=== PATIENT | female | born 1955 | race Caucasian/White ===

== ENCOUNTER 2018-10-08 18:12 | Emergency (ER) | payer BC ==
[2018-10-08 18:31] VITALS: BP 144/76
[2018-10-08] MEDS ORDERED: Tetan/Diph/Pertus SYR(Tdap)* 0.5 ML SYR(BOOSTRIX) use SYR IM ONE (18:34)
--- NOTE | 2018-10-08 18:34 | UC ---
Skin Complaint HPI - HPI Summary HPI Summary: 12 days ago was carrying [employer] felt a sharp pain in her forearm saw a drop of blood she suspected a bite our sting had marked swelling and bruising of forearm now that swelling has gone down she feels a foreign body slight overlying redness Td not up to date - History of Current Complaint Time Seen by Provider: 10/08/18 18:23 Stated Complaint: SLIVER IN FOREARM Hx Obtained From: Patient Onset/Duration: Sudden Onset, Lasting Days Timing: Constant Onset Severity: Mild Current Severity: None Pain Intensity: 0 Pain Scale Used: 0-10 Numeric Location: Diffuse Character: Swelling, Pain Aggravating Factor(s): Touch Alleviating Factor(s): Nothing Associated Signs & Symptoms: Positive: Tenderness Related History: Foreign Body - ?? - Allergy/Home Medications Allergies/Adverse Reactions: Allergies Allergy/AdvReac Type Severity Reaction Status Date / Time codeine AdvReac Intermediate Nausea And Verified 10/08/18 18:26 Vomiting Home Medications: Home Medications Glucosamine Sulfate Dipot Chlr [Gnp Glucosamine Maximum S] 1,000 mg PO DAILY [History Confirmed 10/08/18] Tumeric 1 cap PO DAILY 10/08/18 [History Confirmed 10/08/18] PMH/Surg Hx/FS Hx/Imm Hx Previously Healthy: Yes - Surgical History Surgical History: Yes Surgery Procedure, Year, and Place: 2007 CSP - LAMINECTOMY - [facility]. Rt WRIST - FRACTURE - HARDWARE REMOVED. RT FEMUR FX - NAY. Lt SHOULDER - Family History Known Family History: Positive: Hypertension Review of Systems All Other Systems Reviewed And Are Negative: Yes Constitutional: Positive: Negative Skin: Positive: Negative Eyes: Positive: Negative, Diplopia ENT: Positive: Negative Respiratory: Positive: Negative Cardiovascular: Positive: Negative Gastrointestinal: Positive: Negative Genitourinary: Positive: Negative Physical Exam Triage Information Reviewed: Yes Appearance: Well-Appearing, No Pain Distress, Well-Nourished Vital Signs Reviewed: Yes Eyes: Positive: Conjunctiva Clear ENT: Positive: Hearing grossly normal. Negative: Nasal congestion, Nasal drainage, Trismus, Muffled voice, Hoarse voice Neck: Positive: Supple, Nontender Respiratory: Positive: Lungs clear, Normal breath sounds, No respiratory distress, No accessory muscle use Cardiovascular: Positive: RRR, No Murmur Abdomen Description: Positive: Nontender, No Organomegaly Musculoskeletal: Positive: ROM Intact, No Edema Neurological: Positive: Alert Psychological Exam: Normal Skin Exam: Other - see image Images Front/Back of Body, Lg ([place]): 1 - palpable FB Course/Dx - Diagnoses Provider Diagnosis: Acute foreign body of right forearm Discharge - Sign-Out/Discharge Documenting (check all that apply): Patient Departure All imaging exams completed and their final reports reviewed: No - Discharge Plan Condition: Stable Disposition: HOME Prescriptions: Cephalexin CAP* [Keflex CAP*] 500 mg PO QID #28 cap Patient Education Materials: Soft Tissue Foreign Body (ED) Additional Instructions: I suggest you see a General surgeon for evaluation I suspect a non metallic foreign body in your right forearm Call in AM and brijesh an appt Dr. Fernando (General Surgeon) [phone] - Billing Disposition and Condition Condition: STABLE Disposition: Home
[2018-10-08] MEDS ORDERED: Cephalexin CAP* 500 MG PO ONE (18:55)
--- NOTE | 2018-10-09 07:59 | UC ---
- Progress Note Progress Note: Final x-ray reading reviewed. IMPRESSION: No radiopaque foreign body is identified. Consistent with wet read by provider. No change in POC. Course/Dx - Diagnoses Provider Diagnoses: Acute foreign body of right forearm Discharge - Sign-Out/Discharge Documenting (check all that apply): Post-Discharge Follow Up All imaging exams completed and their final reports reviewed: Yes - Discharge Plan Condition: Stable Disposition: HOME Prescriptions: Cephalexin CAP* [Keflex CAP*] 500 mg PO QID #28 cap Patient Education Materials: Soft Tissue Foreign Body (ED) Referrals: Shruthi Apple MD [Primary Care Provider] - Additional Instructions: I suggest you see a General surgeon for evaluation I suspect a non metallic foreign body in your right forearm Call in AM and brijesh an appt Dr. Fernando (General Surgeon) [phone] - Billing Disposition and Condition Condition: STABLE Disposition: Home
== END 2018-10-08 19:15 | disposition home or self-care (01) ==
LOC: UCEAST 18:12
DX: S51.841A Puncture wound with foreign body of right forearm, initial encounter (principal); X58.XXXA Exposure to other specified factors, initial encounter; Y92.9 Unspecified place or not applicable; Z88.5 Allergy status to narcotic agent
CPT/HCPCS: 90715; 99212; A9270-GY; G0463

== ENCOUNTER 2018-10-20 13:00 | Day surgery (SDC) | payer BC ==
[~2018-10-20 13:00] MED LIST: Buffered Lidocaine 1% SYRIN* 1 ML/SYRINGE INTRADERM ONE; Dexamethasone IV* 4 MG/ML 1 ML (4 MG) IV SLOW PU ONE; Dexamethasone IV* 4 MG/ML 1 ML (4 MG) ONE; Famotidine TAB* 20 MG ONE; Famotidine TAB* 20 MG PO ONE; Lactated Ringers 1000 ML Bag* 1,000 ML IV SCH; Scopolamine 1.5 mg* PATCH ONE; Scopolamine 1.5 mg* PATCH TRANSDERM SCH; ceFAZolin 2 GM in NS PREMIX(*) 2 GM/100 ML BAG IVPB ONE
[2018-10-20] MEDS ORDERED: Midazolam* 1 MG/ML 2 ML VIAL (2 MG) ONE (13:12)
[2018-10-20] MEDS ORDERED: fentaNYL* 50 MCG/ML 2 ML VIAL (100 MCG VIAL) ONE (13:12)
[2018-10-20] MEDS ORDERED: Propofol* 10 MG/ML 20 ML BTL ONE (13:22)
[2018-10-20] MEDS ORDERED: Bupivacaine 0.5%* 50 ML MDV VIAL ONE (14:10)
[2018-10-20] MEDS ORDERED: Lidocaine 1% w EPI 1:100,000* MDV 20 ML VIAL ONE (14:39)
[2018-10-20] MEDS ORDERED: Ibuprofen TAB* 600 MG PO PRN (15:29)
[2018-10-20] MEDS ORDERED: Ondansetron INJ* 2 MG/ML VIAL IV PRN (15:29)
[2018-10-20] MEDS ORDERED: fentaNYL* 50 MCG/ML 2 ML VIAL (100 MCG VIAL) IV PRN (15:29)
[2018-10-20] MEDS ORDERED: oxyCODONE/Acetamin 5/325 MG* TAB PO PRN (15:29)
[2018-10-20] MEDS ORDERED: Naloxone* 0.4 MG/ML 1 ML VIAL IV PRN (15:29)
[2018-10-20] MEDS ORDERED: Acetaminophen TAB* 325 MG PO PRN (15:29)
[2018-10-20 15:58] VITALS: BP 112/68
--- NOTE | 2018-10-21 21:15 | OP ---
OPERATIVE NOTE: DATE OF SURGERY: 10/20/18 DATE OF : 55 SURGEON: Cordell Centeno MD. BUSINESS TRAVEL CONSULTANT: BRITTNEE Galarza. A physician clerical dentist assistant was required for the length of the procedure for assistance with patient positi oning, retraction, and closure. ANESTHESIOLOGIST: Dr. Mikael Oglesby. ANESTHESIA: Monitored anesthesia care and local anesthesia, approximately 8 cc of a 1:1 ratio mixtur e of Marcaine 0.5% with epinephrine and lidocaine 1%. PRE-OP DIAGNOSIS: Right forearm foreign body. POST-OP DIAGNOSIS: Right forearm foreign body. PROCEDURE: Removal of foreign body, right forearm. ANTIBIOTICS: Ancef 2 g IV. IV FLUIDS: 900 cc crystalloid. TOURNIQUET TIME: 30 minutes of a right upper arm tourniquet set to 250 mmHg. [id number] INCISION TIME: 11 minutes. SPECIMEN: One foreign body removed, approximately 1 cm long, narrow. IMPLANTS: None. COMPLICATIONS: None. ESTIMATED BLOOD LOSS: Minimal. INDICATIONS FOR PROCEDURE: The patient is a 63-year-old woman, ywsyh-mcre-srdwizop nurse, who injure d herself on 09/26/18, almost 1 month preoperative. She was moving some wood. She felt what she tho ught to be a bee sting occur. The patient removed possibly part of what the bee stung her with, the body part. The next day, however, the patient's volar right forearm developed significant swelling a nd bruising along its length, almost as if there was an allergic type reaction. The patient's primar care physician prescribed oral prednisone, which reduced the swelling. However, the patient continued to feel something inside her forearm. She thought it might be a forei gn body. The patient went to [facility] and had a tetanus shot and was given Keflex antibiotics . The patient continued to sense a possible foreign body and also to have forearm pain. This was wo rst with wrist active extension. The patient had x-rays that were negative and an ultrasound, which identified what looked to be a for eign body. We discussed removal. The patient was very interested in this. We discussed doing this either in cl inic or in the operating room. Ultimately, I decided to do this in the operating room rather than in the clinic because of the nonme tallic nature of the foreign body, the lack of clarity whether this was one or perhaps multiple forei gn bodies, the possible irritation of flexor tendons which caused discomfort with the patient's wrist in full extension. As well, given that there might have been some type of allergic reaction at some point, I favored some irrigation around the foreign body to minimize any more adverse reaction. Discussed risks and potential complications of procedure. DESCRIPTION OF PROCEDURE: In preoperative holding, the patient signed a written consent. Operative extremity was marked in preoperative holding. The patient was taken back to the operating room and r emained on the stretcher. The patient was lightly sedated. Hand table was attached. A mini time-out was performed. I placed local anesthesia, 8 cc, about the ulnar and volar aspects of the mid right forearm, proximal to the area of interest. Tourniquet was applied to the right upper a rm. The patient was prepped and draped. Formal surgical time-out declared. Esmarch applied and tourniquet elevated. I should note that in preoperative holding, I had examined the patient's forearm very thoroughly with her assistance. I identified where she believed the loose body to be present. This area did not jorgensen ve the fluid collection that it appeared to have in the clinic several days before, but was slightly tender. I marked that area with a marking pen in preoperative holding to know exactly where to make my skin incision. Now in the operating room, I made my skin incision. It was perhaps 3 cm long, longitudinal. I disse cted down into subcutaneous tissue. It looked like there had been a robust soft tissue reaction, the type of reactionary scar tissue forming around what I eventually found to be a foreign body. I alma delia michelle it from the wound. It was long and skinny. It may have had a slightly greenish color, but the co flor was not definitive. It seemed like organic matter, but was definitely not as hard or robust as a sliver of wood. Difficult to know exactly what it was. This was removed from the wound. I explored the wound down to the fascia for any other foreign bodies. None was encountered. I was a ble to respect a small nerve branch to the skin nearby. I irrigated the wound. Next, I closed the skin incision with horizontal mattress stitches using nylon 4-0 suture. Xeroform, 4x4s, sterile Webril, [place]. The patient was lightened of sedation and transferred to PACU. DISPOSITION: The patient will take NSAIDs or Tylenol as needed for postoperative pain. Wound care i nstructions provided. The patient will follow up in 10 to 14 days in the clinic with me. [id number]/[facility] #: [id number]
== END 2018-10-20 16:17 | disposition home or self-care (01) ==
LOC: OR 13:00
PROVIDERS: ATTEND Orthopaedic Surgery
DX: S51.841A Puncture wound with foreign body of right forearm, initial encounter (principal); J45.909 Unspecified asthma, uncomplicated; K21.9 Gastro-esophageal reflux disease without esophagitis; M19.90 Unspecified osteoarthritis, unspecified site; F41.8 Other specified anxiety disorders; W45.8XXA Other foreign body or object entering through skin, initial encounter; Y93.89 Activity, other specified; Y92.9 Unspecified place or not applicable
CPT/HCPCS: 88300; A9270-GY; J0690; J1100; J2250; J2704; J3010; J3490

== ENCOUNTER 2021-05-11 09:30 | Observation (INO) ==
[2021-05-11] MEDS ORDERED: oxyCODONE/Acetamin 5/325 mg TAB PO ONE ×3 (09:48→16:28)
[2021-05-11] MEDS ORDERED: HYDROmorphone 1 MG/1 ML SYRINGE IV ONE ×2 (16:37→20:48)
[2021-05-11] MEDS ORDERED: Ondansetron 4 mg VIAL 2 MG/ML 2 ml VIAL IV PRN (21:40)
[2021-05-11] MEDS ORDERED: Albuterol HFA INHALER 8 gm MDI INH PRN (21:45)
[2021-05-11 22:37] LABS: ABS Basophils 0.1 10^3/ul (0-0.2); ABS Eosinophils 0.2 10^3/ul (0-0.6); ABS Lymphocytes 2.3 10^3/ul (1.0-4.8); ABS Monocytes 0.9 10^3/ul (0-0.8); ABS Neutrophils 7.2 10^3/ul (1.5-7.7); Eosinophil % 1.9 %; Hematocrit 40 % (35-47); Hemoglobin 13.1 g/dL (12.0-16.0); Lymphocyte % 21.2 %; Mean Corpuscular HGB Conc 33 g/dL (31-36); Mean Corpuscular Hemoglobin 31 pg (27-31); Mean Corpuscular Volume 94 fL (80-97); Nucleated Red Blood Cells % 0.1; Platelet Count 363 10^3/uL (150-450); Red Blood Count 4.24 10^6 /uL (3.70-4.87); Red Cell Distribution Width 14 % (10-15); White Blood Count 10.7 10^3/uL (3.5-10.8)
[2021-05-11 22:42] LABS: INR 1.08 (0.86-1.15)
[2021-05-11 22:53] LABS: Albumin/Globulin Ratio 1.6 (1-3); Calcium 9.2 mg/dL (8.6-10.3); Globulin 2.5 g/dL (2-4); Potassium 3.7 mmol/L (3.5-5.0); Total Bilirubin 0.5 mg/dL (0.2-1.0); Total Protein 6.5 g/dL (6.4-8.9)
[2021-05-11] MEDS: HYDROmorphone 0.5 MG/0.5 ML SYRINGE IV SLOW PU PRN (23:58)
[2021-05-12] MEDS: oxyCODONE/Acetamin 5/325 mg TAB PO PRN ×3 (01:32→11:45)
[2021-05-12] MEDS: Enoxaparin 40 MG/0.4 ML SYR SUBCUT SCH ×2 (05:35→21:12)
[2021-05-12] MEDS: Lidocaine PATCH 5% PATCH TRANSDERM SCH (05:36)
[2021-05-12 06:03] LABS: ABS Basophils 0.1 10^3/ul (0-0.2); ABS Eosinophils 0.3 10^3/ul (0-0.6); ABS Lymphocytes 1.9 10^3/ul (1.0-4.8); ABS Monocytes 0.9 10^3/ul (0-0.8); ABS Neutrophils 5.7 10^3/ul (1.5-7.7); Eosinophil % 3.6 %; Hematocrit 37 % (35-47); Hemoglobin 12.4 g/dL (12.0-16.0); Lymphocyte % 21.7 %; Mean Corpuscular HGB Conc 34 g/dL (31-36); Mean Corpuscular Hemoglobin 32 pg (27-31); Mean Corpuscular Volume 94 fL (80-97); Platelet Count 334 10^3/uL (150-450); Red Blood Count 3.91 10^6 /uL (3.70-4.87); Red Cell Distribution Width 14 % (10-15); White Blood Count 8.9 10^3/uL (3.5-10.8)
[2021-05-12 06:20] LABS: Potassium 3.7 mmol/L (3.5-5.0); eGFR CKD-EPI 100.4 (>60)
[2021-05-12] MEDS: HYDROmorphone 0.5 MG/0.5 ML SYRINGE IV SLOW PU PRN ×3 (07:31→21:12)
[2021-05-12] MEDS: Vitamin THERAPEUTIC TAB PO SCH (07:31)
[2021-05-12] MEDS: Lidocaine Patch REMOVE NOTE PATCH OFF SCH (14:04)
[2021-05-12] MEDS: Senna TAB 8.6 mg TAB PO SCH (21:13)
[2021-05-13] MEDS: HYDROmorphone 0.5 MG/0.5 ML SYRINGE IV SLOW PU PRN (04:42)
[2021-05-13] MEDS: Polyethylene Glycol 3350 17 GM PACKET PO PRN (08:13)
[2021-05-13] MEDS: Vitamin THERAPEUTIC TAB PO SCH (08:14)
[2021-05-13] MEDS: Lidocaine PATCH 5% PATCH TRANSDERM SCH (08:19)
[2021-05-13] MEDS: Lidocaine Patch REMOVE NOTE PATCH OFF SCH (20:20)
[2021-05-13] MEDS: Senna TAB 8.6 mg TAB PO SCH (20:43)
[2021-05-13] MEDS: Enoxaparin 40 MG/0.4 ML SYR SUBCUT SCH (20:43)
[2021-05-14] MEDS: Polyethylene Glycol 3350 17 GM PACKET PO PRN (07:49)
[2021-05-14 08:27] VITALS: BP 121/76
[2021-05-14] MEDS ORDERED: Lidocaine PATCH 5% PATCH TRANSDERM SCH (09:00)
[2021-05-14] MEDS: Vitamin THERAPEUTIC TAB PO SCH (09:01)
== END 2021-05-14 11:15 | disposition home or self-care (01) ==
LOC: ED 09:30 → EDHOLD 09:30 → SUATTDRO 23:07 → SSU 05-12 14:12
PROVIDERS: ADMIT Internal Medicine; ATTEND Internal Medicine